=== PATIENT | male | born 1970 | race Caucasian/White ===

== ENCOUNTER 2016-12-09 12:42 | Emergency (ER) | payer BC, OTHER ==
--- NOTE | 2016-12-09 13:25 | EDM.PDOC ---
ED HPI GENERAL MEDICAL PROBLEM - General Chief Complaint: Chest Pain Stated Complaint: CHEST PAIN Time Seen by Provider: 12/09/16 13:15 Source of Information: Reports: Patient History Limitations: Reports: No Limitations - History of Present Illness INITIAL COMMENTS - FREE TEXT/NARRATIVE: Patient's complaining of left-sided chest discomfort worsen with sitting up or movement since of this last wk. Pain is described as a sharp sensation increased with movement and taking a deep breath. Decreases with laying on his left side. No pain with exertion. No known trauma/activity provoking complaint. He has no nausea/vomiting, diaphoresis, shortness of breath, abdominal pain associated with this. He has no history of DVT/PE, acid reflux, SOB, dizzyness, palpations, or n/v. Patient has no known PMH and is currently taking no medicaitions. No history of 1st degree relative with heart disease. Left Chest Pain Score (Numeric/FACES): 2 - Related Data Allergies Allergy/AdvReac Type Severity Reaction Status Date / Time No Known Allergies Allergy Verified 12/09/16 12:51 Home Meds: Home Meds . [No Known Home Meds] 12/09/16 [History] Past Medical History - Past Surgical History GI Surgical History: Reports: Appendectomy Social & Family History - Tobacco Use Smoking Status *Q: Never Smoker Second Hand Smoke Exposure: No - Caffeine Use Caffeine Use: Reports: Coffee - Recreational Drug Use Recreational Drug Use: No ED ROS GENERAL - Review of Systems Review Of Systems: See Below Constitutional: Denies: Fever, Chills, Malaise, Weakness, Fatigue, Diaphoresis, Decreased Appetite Respiratory: Reports: Pleuritic Chest Pain. Denies: Shortness of Breath, Wheezing, Cough, Sputum, Hemoptysis Cardiovascular: Reports: Chest Pain. Denies: Claudication, Dyspnea on Exertion , Lightheadedness, Orthopnea, Palpitations, PND, Syncope GI/Abdominal: Denies: Abdominal Pain, Constipation, Diarrhea, Nausea, Vomiting Musculoskeletal: Denies: Neck Pain, Back Pain Neurological: Denies: Dizziness, Headache, Numbness, Syncope, Tingling ED EXAM, GENERAL - Physical Exam Exam: See Below Exam Limited By: No Limitations General Appearance: Alert, WD/WN, No Apparent Distress Eye Exam: Bilateral Eye: PERRL Ears: Hearing Grossly Normal Nose: Normal Inspection Throat/Mouth: Normal Voice, No Airway Compromise Head: Atraumatic, Normocephalic Neck: Normal Inspection, Supple, Non-Tender, Full Range of Motion Respiratory/Chest: No Respiratory Distress, Lungs Clear, Normal Breath Sounds, Chest Non-Tender, Other (No pain at rest or increased with taking a deep breath. Pain is worsen with having the patient sit up. Pain is localized to the left side of his chest that radiates intermittentlyto the side of his back.) Cardiovascular: Normal Peripheral Pulses, Regular Rate, Rhythm, No Murmur Peripheral Pulses: 2+: Radial (L), Radial (R) GI/Abdominal: Normal Bowel Sounds, Soft, Non-Tender Back Exam: Normal Inspection, Full Range of Motion Extremities: Normal Inspection, Normal Range of Motion, Non-Tender, No Pedal Edema, Normal Capillary Refill Neurological: Alert, Oriented, CN II-XII Intact, Normal Cognition Psychiatric: Normal Affect, Normal Mood Skin Exam: Warm, Dry, Intact, Normal Color Course - Vital Signs Last Recorded V/S: Last Vital Signs Temp 97.7 F 12/09/16 12:48 Pulse 66 12/09/16 16:31 Resp 12 12/09/16 16:15 BP 113/75 12/09/16 16:31 Pulse Ox 98 12/09/16 16:31 - Orders/Labs/Meds Labs: Laboratory Tests 12/09/16 12/09/16 12/09/16 Range/Units 13:11 13:11 13:11 WBC 6.62 (4.23-9.07) K/mm3 RBC 5.02 (4.63-6.08) M/mm3 Hgb 15.4 (13.7-17.5) gm/L Hct 44.8 (40.1-51.0) % MCV 89.2 (79.0-92.2) fl MCH 30.7 (25.7-32.2) pg MCHC 34.4 (32.2-35.5) g/dl RDW Std Deviation 41.7 (35.1-43.9) fL Plt Count 224 (163-337) K/mm3 MPV 10.3 (9.4-12.3) fl Neutrophils % (Manual) 68 H (40-60) % Band Neutrophils % 0 (0-10) % Lymphocytes % (Manual) 29 (20-40) % Atypical Lymphs % 0 % Monocytes % (Manual) 0 L (2-10) % Eosinophils % (Manual) 3 (0.8-7.0) % Basophils % (Manual) 0 L (0.2-1.2) Platelet Estimate Adequate RBC Morph Comment Normal D-Dimer, Quantitative 0.48 (0.19-0.59) mg/L Sodium (136-145) mEq/L Potassium (3.5-5.1) mEq/L Chloride (98-107) mEq/L Carbon Dioxide (21-32) mEq/L Anion Gap (5-15) BUN (7-18) mg/dL Creatinine (0.7-1.3) mg/dL Est Cr Clr Drug Dosing mL/min Estimated GFR (MDRD) (>60) mL/min BUN/Creatinine Ratio (14-18) Glucose (74-106) mg/dL Calcium (8.5-10.1) mg/dL Total Bilirubin (0.2-1.0) mg/dL AST (15-37) U/L ALT (16-63) U/L Alkaline Phosphatase (46-116) U/L CK-MB (CK-2) 0.9 (0-3.6) ng/ml Troponin I < 0.017 (0.00-0.056) ng/mL Total Protein (6.4-8.2) g/dl Albumin (3.4-5.0) g/dl Globulin gm/dL Albumin/Globulin Ratio (1-2) 07/24/17 Range/Units 13:11 WBC (4.23-9.07) K/mm3 RBC (4.63-6.08) M/mm3 Hgb (13.7-17.5) gm/L Hct (40.1-51.0) % MCV (79.0-92.2) fl MCH (25.7-32.2) pg MCHC (32.2-35.5) g/dl RDW Std Deviation (35.1-43.9) fL Plt Count (163-337) K/mm3 MPV (9.4-12.3) fl Neutrophils % (Manual) (40-60) % Band Neutrophils % (0-10) % Lymphocytes % (Manual) (20-40) % Atypical Lymphs % % Monocytes % (Manual) (2-10) % Eosinophils % (Manual) (0.8-7.0) % Basophils % (Manual) (0.2-1.2) Platelet Estimate RBC Morph Comment D-Dimer, Quantitative (0.19-0.59) mg/L Sodium 139 (136-145) mEq/L Potassium 4.2 (3.5-5.1) mEq/L Chloride 103 (98-107) mEq/L Carbon Dioxide 25 (21-32) mEq/L Anion Gap 15.2 H (5-15) BUN 17 (7-18) mg/dL Creatinine 1.3 (0.7-1.3) mg/dL Est Cr Clr Drug Dosing 79.59 mL/min Estimated GFR (MDRD) 60 (>60) mL/min BUN/Creatinine Ratio 13.1 L (14-18) Glucose 100 (74-106) mg/dL Calcium 9.1 (8.5-10.1) mg/dL Total Bilirubin 0.3 (0.2-1.0) mg/dL AST 22 (15-37) U/L ALT 44 (16-63) U/L Alkaline Phosphatase 79 (46-116) U/L CK-MB (CK-2) (0-3.6) ng/ml Troponin I (0.00-0.056) ng/mL Total Protein 7.7 (6.4-8.2) g/dl Albumin 3.9 (3.4-5.0) g/dl Globulin 3.8 gm/dL Albumin/Globulin Ratio 1.0 (1-2) - Re-Assessments/Exams Free Text/Narrative Re-Assessment/Exam: Patient's complaining of left-sided chest discomfort worsen with sitting up or movement. Pain is described as a sharp sensation. He has no nausea/vomiting, diaphoresis, shortness of breath, abdominal pain associated with this. He has no history of DVT/PE. Initial labs and studies include CBC, troponin, CK-MB, EKG , d-dimer, and chest x-ray one view. 12/09/16 13:25 EKG reveals sinus rhythm at a rate of 67 with findings consistent with early repolarization pattern. No acute ST changes noted. Chest x-ray reviewed: No acute findings noted. Final interpretation is pending. Will wait for the interpretation prior to discharge. PERC Rule: negative Labs reviewed: CBC and chem 14 were essentially normal. CK-MB, Troponin ,and d- dimer were negative. Chest x-ray nothing acute is identified on portable chest x-ray. Reassessment, patient is laying in bed with mild pain to his chest worsened with sitting up. Shared results of labs, EKG, and CXR with patient. He is ready to be discharged home. Discharge instructions as documented. Departure - Departure Time of Disposition: 16:35 Disposition: Home, Self-Care 01 Clinical Impression: Atypical chest pain Instructions: Nonspecific Chest Pain, [id number] Referrals: Radha Bae [Physician] - Forms: ED Department Discharge Additional Instructions: For pain take ibuprofen 400-600 mg every 6 hours with copious amounts of water. Take these medications with food as well. Follow-up with PCP Dr. Pettit in 1 week for reevaluation. If you develop past reflux with taking the ibuprofen can also utilize Prilosec one tab every morning half-hour prior to eating. Return to ED as needed for any new or worsening symptoms.
--- NOTE | 2016-12-09 15:44 | CR ---
Chest: Portable view of the chest was obtained. Comparison: No previous study. Heart size and mediastinum are normal. Lungs are clear. Bony structures are grossly intact. Impression: 1. Nothing acute is identified on portable chest x-ray. Diagnostic code #1
[2016-12-09 17:03] VITALS: BP 113/75
== END 2016-12-09 17:00 | disposition home or self-care (01) ==
LOC: JD.ED 12:42
DX: R07.89 Other chest pain (principal); Z90.49 Acquired absence of other specified parts of digestive tract
CPT/HCPCS: 36415; 71010; 71010-26; 80053; 82553; 84484; 85025; 85379; 93005; 99284; 99285-25